=== PATIENT | female | born 1995 | race American Indian/Alaskan Native ===

== ENCOUNTER 2017-09-12 18:42 | Emergency (ER) | payer OTHER ==
[2017-09-12 18:42] VITALS: BMI 22.6
[2017-09-12 19:51] VITALS: O2SAT 99
--- NOTE | 2017-09-12 21:28 | C.PDOC ---
History Of Present Illness 21 y/o female with c/o cough, nasal congestion, bodyaches and diarrhea x 3 days with subjective fever. Pt denies vomiting, abdominal pain, chest pain, or recent travel. Pt has not taken any OTC meds Time Seen by Provider: 09/12/17 20:55 Chief Complaint (Nursing): Abdominal Pain History Per: Patient History/Exam Limitations: no limitations Onset/Duration Of Symptoms: Days Current Symptoms Are (Timing): Still Present Past Medical History Reviewed: Historical Data, Nursing Documentation, Vital Signs Vital Signs: Last Vital Signs Temp 99.0 F 09/12/17 21:50 Pulse 80 09/12/17 21:50 Resp 18 09/12/17 21:50 BP 112/74 09/12/17 21:50 Pulse Ox 99 09/13/17 08:36 - Medical History PMH: No Chronic Diseases Surgical History: No Surg Hx Family History: States: No Known Family Hx - Social History Hx Alcohol Use: No Hx Substance Use: No Review Of Systems Constitutional: Positive for: Fever. Negative for: Chills ENT: Positive for: Nose Congestion Respiratory: Positive for: Cough Gastrointestinal: Positive for: Diarrhea. Negative for: Nausea, Vomiting, Abdominal Pain Musculoskeletal: Negative for: Back Pain Skin: Negative for: Rash Neurological: Negative for: Weakness, Numbness Physical Exam - Physical Exam Appears: Non-toxic, No Acute Distress Skin: Warm, Dry, No Rash Head: Atraumatic, Normacephalic Eye(s): bilateral: Normal Inspection Oral Mucosa: Moist Neck: Normal ROM, Supple Cardiovascular: Rhythm Regular Respiratory: Normal Breath Sounds, No Rales, No Rhonchi, No Wheezing Gastrointestinal/Abdominal: Soft, No Tenderness, No Guarding, No Rebound Neurological/Psych: Oriented x3 ED Course And Treatment O2 Sat by Pulse Oximetry: 99 (RA) Pulse Ox Interpretation: Normal Progress Note: Pt appears well in no acute distress, VSS, taking and tolerating PO. PT will follwo up in clinic Disposition Counseled Patient/Family Regarding: Diagnosis, Need For Followup, Rx Given - Disposition Disposition: HOME/ ROUTINE Disposition Time: 21:23 Condition: STABLE Additional Instructions: Please follow up with PMD Increase PO fluids Take meds as directed Return to ER if worse Prescriptions: Benzonatate [Tessalon Perles] 100 mg PO TID #20 sgl Cetirizine HCl [Zyrtec] 10 mg PO DAILY #14 capsule Ibuprofen [Motrin] 600 mg PO Q6H #20 tab Instructions: Viral Syndrome (ED) Forms: [facility] ([place]) - Clinical Impression Clinical Impression: Viral syndrome - PA / CLASS A REGIONAL DRIVERS / Resident Statement MD/DO has reviewed & agrees with the documentation as recorded. - Scribe Statement The provider has reviewed the documentation as recorded by the Viryibrakesh Ramirez All medical record entries made by the Viryibraeksh were at my direction and personally dictated by me. I have reviewed the chart and agree that the record accurately reflects my personal performance of the history, physical exam, medical decision making, and the department course for this patient. I have also personally directed, reviewed, and agree with the discharge instructions and disposition.
[2017-09-12 21:52] VITALS: BP 112/74; PULSE 80; RESP 18; TEMP 99
== END 2017-09-12 21:52 | disposition home or self-care (01) ==
LOC: C.ER 18:42
DX: B34.9 Viral infection, unspecified (principal)